=== PATIENT | male | born 1965 | race Caucasian/White ===

== ENCOUNTER 2017-07-15 15:39 | Emergency (ER) | payer MEDICAID, OTHER ==
[~2017-07-15] VITALS: Ht 190.5 cm; Wt 158.8 kg
[~2017-07-15 15:39] MED LIST: [UNRECOGNIZED DRUG - OTHER]
[2017-07-15 18:20] LABS: Basophils # (auto) 0.1 uL; Basophils % (auto) 1.4 % (0.0-2.0); Eosinophils # (auto) 0.1 uL; Eosinophils % (auto) 0.9 % (0.0-7.0); Hematocrit 43.9 % (41.0-53.0); Hemoglobin 14.7 g/dL (13.5-17.5); Lymphocytes # (auto) 2.5 uL; Lymphocytes % (auto) 25.8 % (10.0-50.0); Mean Corpuscular Hemoglobin 26.8 pg (28.0-32.0); Mean Corpuscular Hgb Conc. 33.5 g/dL (32.0-36.0); Monocytes # (auto) 0.6 uL; Monocytes % (auto) 6.1 % (0.0-12.0); Neutrophils # (auto) 6.5 uL; Neutrophils % (auto) 65.8 % (37.0-80.0); Platelet Count (auto) 290 10^3/uL (140-450); White Blood Cell 9.8 10^3/uL (4.4-10.8)
[2017-07-15 18:40] LABS: Acetaminophen < 2.0 ug/mL (10-30); Salicylate 2.1 mg/dL (2.8-20.0)
[2017-07-15 18:45] LABS: Albumin 3.8 g/dL (3.4-5.0); Alkaline Phosphatase 126 U/L (45-117); Anion Gap 7 (5-15); Aspartate Aminotransferase 21 U/L (15-37); BUN/Creatinine Ratio 10.3; Bilirubin, Total 0.5 mg/dL (0.2-1.0); Blood Urea Nitrogen 9 mg/dL (7-18); Carbon Dioxide 29 mmol/L (21-32); Chloride 106 mmol/L (98-107); GFR African American 118 mL/min; GFR Non-African American 98 mL/min; Glucose 108 mg/dL (74-106); Magnesium 2.6 mg/dL (1.6-2.6); Potassium 3.4 mmol/L (3.5-5.1); Sodium 142 mmol/L (136-145); Total Protein 7.6 g/dL (6.4-8.2)
[2017-07-15] MEDS ORDERED: IPRATROPIUM BROM 0.5 MG/2.5ML INH SOL NEB ONE (20:00)
[2017-07-15] MEDS ORDERED: ALBUTEROL SULF 2.5 MG/0.5ML(0.5%) NEB SOLN NEB ONE (20:00)
[2017-07-15 20:06] LABS: Urine Bilirubin Negative (Negative); Urine Blood Negative /uL (Negative); Urine Color Yellow (Yellow); Urine Glucose Normal (Normal); Urine Ketone Negative (Negative); Urine Mucus MODERATE (None Seen); Urine Nitrite Negative (Negative); Urine RBC 1 /hpf (0 - 3); Urine Squamous Epithelial Cell FEW /hpf (<5); Urine Urobilinogen Normal (Negative); Urine pH 5.5 (5.0-8.0)
[2017-07-15] MEDS ORDERED: HYDROcodone-ACET 10/325MG TAB PO ONE (21:15)
[2017-07-15] MEDS ORDERED: LORazepam 0.5 MG TAB PO ONE (21:15)
[2017-07-16] MEDS ORDERED: ZOLPIDEM TARTRATE 5 MG TAB PO PRN (05:00)
[2017-07-16] MEDS: HYDROcodone-ACET 10/325MG TAB PO PRN ×3 (05:11→14:18)
[2017-07-16] MEDS ORDERED: CYCLOBENZAPRINE HCL 10 MG TAB PO ONE (08:15)
[2017-07-16] MEDS ORDERED: GABAPENTIN 100 MG CAP PO ONE (08:15)
[2017-07-16] MEDS ORDERED: ALBUTEROL SULF 2.5 MG/0.5ML(0.5%) NEB SOLN NEB PRN (14:00)
[2017-07-16] MEDS ORDERED: PANTOPRAZOLE 40 MG TAB PO ONE (14:02)
[2017-07-16] MEDS ORDERED: POTASSIUM CHL 10 Meq TABLET PO ONE ×2 (14:02→14:07)
[2017-07-16] MEDS ORDERED: FUROSEMIDE 40 MG TAB ONE (14:02)
[2017-07-16] MEDS ORDERED: metFORMIN HYDROCHLORIDE 500 MG TAB ONE (14:03)
[2017-07-16] MEDS ORDERED: HCTZ 25 MG TAB ONE (14:03)
[2017-07-16] MEDS ORDERED: ENALAPRIL MALEATE 10 MG TAB ONE (14:04)
[2017-07-16] MEDS ORDERED: HYDROcodone-ACET 10/325MG TAB ONE (14:05)
[2017-07-16 18:54] VITALS: BP 165/86
[2017-07-16] MEDS ORDERED: GABAPENTIN 100 MG CAP PO SCH (22:00)
[2017-07-16] MEDS ORDERED: ENALAPRIL MALEATE 10 MG TAB PO SCH (22:00)
[2017-07-17] MEDS ORDERED: FUROSEMIDE 20 MG TAB PO SCH (10:00)
[2017-07-17] MEDS ORDERED: POTASSIUM CHL 10 Meq TABLET PO SCH (10:00)
[2017-07-17] MEDS ORDERED: PANTOPRAZOLE 40 MG TAB PO SCH (10:00)
[2017-07-17] MEDS ORDERED: metFORMIN HYDROCHLORIDE 500 MG TAB PO SCH (10:00)
[2017-07-17] MEDS ORDERED: HCTZ 25 MG TAB PO SCH (10:00)
== END 2017-07-16 19:03 | disposition short-term general hospital (02) ==
LOC: EDBD 15:39 → ER 15:43
DX: T14.91XA Suicide attempt, initial encounter (principal); F31.9 Bipolar disorder, unspecified; F41.9 Anxiety disorder, unspecified; J44.9 Chronic obstructive pulmonary disease, unspecified; E11.9 Type 2 diabetes mellitus without complications; I10 Essential (primary) hypertension; F12.10 Cannabis abuse, uncomplicated; F17.210 Nicotine dependence, cigarettes, uncomplicated; Z59.0 Homelessness
CPT/HCPCS: 36415; 71010; 80053; 80307; 80320; 80329; 81001; 83735; 84484; 85025; 93005; 94761